=== PATIENT | male | born 1980 | race Caucasian/White ===

== ENCOUNTER 2017-01-20 20:50 | Emergency (ER) | payer OTHER ==
[2017-01-20 20:55] VITALS: BP 167/104
[2017-01-20] MEDS ORDERED: HYDROcod/ACET 5/325 Prepack 6 PO STA (21:07)
--- NOTE | 2017-01-20 21:10 | ED Physician Documentation ---
PD HPI UPPER EXT INJURY - Stated complaint Stated Complaint: L SHOULDER PAIN - Chief complaint Chief Complaint: Ext Problem - History obtained from History obtained from: Patient - History of Present Illness Type of injury: Other (He has chronic recurrent left shoulder pain from a previous injury, previous x-rays were noncontributory. He says to some extent it hurts every day but every few months he gets a bad flare and gets pain across the top of the shoulder and difficulty with abduction.) Review of Systems Constitutional: denies: Fever, Chills Throat: denies: Dental pain / toothache, Sore throat Cardiac: denies: Chest pain / pressure, Palpitations PD PAST MEDICAL HISTORY - Past Medical History Cardiovascular: None Respiratory: None Neuro: None Endocrine/Autoimmune: None GI: None : None HEENT: None Psych: None Musculoskeletal: None Derm: None - Past Surgical History Past Surgical History: No - Present Medications Home Medications: Ambulatory Orders Medication Instructions Recorded Confirmed No Known Home Medications [No 01/20/17 01/20/17 Known Home Medications] - Allergies Allergies/Adverse Reactions: Allergies Allergy/AdvReac Type Severity Reaction Status Date / Time No Known Drug Allergies Allergy Verified 01/20/17 20:52 - Social History Does the pt smoke?: No Smoking Status: Never smoker Does the pt drink ETOH?: Yes Does the pt have substance abuse?: No - Immunizations Immunizations are current?: Yes - POLST Patient has POLST: No PD ED PE NORMAL - Vitals Vital signs reviewed: Yes - General General: Alert and oriented X 3, No acute distress - Extremities Extremities: Other (Left shoulder is nontender, he is able to abduct to about 90 but not greater, he does have positive supraspinatus testing.) - Neuro Neuro: Alert and oriented X 3, Normal speech Results - Vitals Vitals: Vital Signs - 24 hr 01/20/17 20:53 Temperature 36.5 C Heart Rate 106 H Respiratory 16 Rate Blood Pressure 167/104 H O2 Saturation 96 Oxygen O2 Source Room air Departure - Departure Disposition: 01 Home, Self Care Clinical Impression: Rotator cuff injury Qualifiers: Encounter type: initial encounter Laterality: left Qualified Code(s): S46.002A - Unspecified injury of muscle(s) and tendon(s) of the rotator cuff of left shoulder, initial encounter Condition: Good Record reviewed to determine appropriate education?: Yes Instructions: ED Tendinitis Rotator Cuff Comments: Given that this is now chronic issue, talk with your doctor about potentially an MRI to see if surgery would be a viable option for you. Your blood pressure was elevated today on check into the emergency department. This does not mean that you have hypertension, it is a common phenomenon to come to the emergency department and have elevated blood pressure. I recommend that she see her primary care physician within the week to have it rechecked when you are feeling better.
[2017-01-20] MEDS ORDERED: HYDROcod/ACET 5/325 Prepack 6 PO ONE (21:15)
== END 2017-01-20 21:25 | disposition home or self-care (01) ==
LOC: ED 20:50
DX: M25.512 Pain in left shoulder (principal); X58.XXXA Exposure to other specified factors, initial encounter; R03.0 Elevated blood-pressure reading, without diagnosis of hypertension; G89.29 Other chronic pain; Z87.828 Personal history of other (healed) physical injury and trauma
CPT/HCPCS: 99283

== ENCOUNTER 2018-11-16 15:12 | Outpatient (CLI) | payer OTHER ==
--- NOTE | 2018-11-16 17:49 | CARDIAC PROCEDURE NOTE ---
DATE OF SERVICE: 11/16/2018 Physician: Michelle Bourgeois MD, [facility] INDICATION: Chest pain. CARDIAC RISK FACTORS: Tobacco use, mild hypertension, father with a stroke. PROCEDURE: After signing informed consent, the patient underwent a Lester- protocol treadmill stress test. No imaging was ordered with the study. RESTING HEART RATE: 87. PEAK HEART RATE: 179 (96% PMHR). RESTING BLOOD PRESSURE: 133/82. PEAK BLOOD PRESSURE: 180/70. The patient exercised for 9 minutes and 28 seconds on a Lester-protocol treadmill stress test. He achieved a peak heart rate of 179 (96% PMHR) and 10.9 METS. The patient described 1 episode of brief chest pain, somewhat pleuritic, that lasted for a few seconds, and he developed mild shortness of breath at peak. He described his perceived exertion at 16/20 on a Matty scale. RESTING EKG: Normal sinus rhythm, poor R-wave progression. EKG AT PEAK: New vertical QRS axis, otherwise unchanged. No ST or T-wave changes suggestive of ischemia. IMPRESSION: 1. Abnormal resting EKG. 2. Good exercise tolerance. 3. Non-anginal pain occurred briefly. 4. EKG changes that were seen with exercise are consistent with pulmonary disease. 5. No imaging was ordered with this test. 6. Cardiac risk status is low, with the above test results. cc: Mj Sin MD TD: 11/16/2018 17:14 MTDD
== END 2018-11-16 15:13 | disposition home or self-care (01) ==
LOC: DI 15:12
PROVIDERS: ATTEND General Practice
DX: R07.9 Chest pain, unspecified (principal); R94.31 Abnormal electrocardiogram [ECG] [EKG]; I10 Essential (primary) hypertension; Z72.0 Tobacco use; Z82.3 Family history of stroke
CPT/HCPCS: 93017

== ENCOUNTER 2019-01-09 14:44 | Emergency (ER) | payer OTHER ==
--- NOTE | 2019-01-09 15:21 | XRAY Report ---
Reason: injury Procedure Date: 01/09/2019 Accession Number: [id number] / [id number] Procedure: XR - Toe(s) RT CPT Code: FULL RESULT: EXAM: RIGHT SECOND TOE RADIOGRAPHY EXAM DATE: 01/09/2019 03:05 PM. CLINICAL HISTORY: Injury right second toe trying to move a tire. Pain and bruising. COMPARISON: None. TECHNIQUE: 3 views. FINDINGS: Bones: Acute 4 x 2 mm avulsion fracture from the volar base of the middle phalanx of the right second toe with 1 mm displacement. No other fracture or focal bone lesion. Joints: Normal. No subluxations. Soft Tissues: Mild soft tissue swelling at the second proximal phalanx. IMPRESSION: Acute 4 x 2 mm avulsion fracture from the volar base of the middle phalanx of the right second toe with 1 mm displacement. RADIA
[2019-01-09] MEDS ORDERED: IBUPROFEN 800 MG TABLET PO STA (15:47)
--- NOTE | 2019-01-09 15:56 | ED Physician Documentation ---
History of Present Illness - Stated complaint Stated Complaint: R MIDDLE TOE INJ - Chief complaint Chief Complaint: Ext Problem - History obtained from History obtained from: Patient - History of Present Illness Timing: Last night Pain level max: 7 Pain level now: 7 - Additonal information Additional information: 38-year-old male presents to the emergency department with a right second toe injury last night at work. He works at the [employer]. Noted bruising and swelling this morning. Worse with movement, better with rest. States that hit it on a tire. Review of Systems Neurologic: denies: Focal weakness, Numbness PD PAST MEDICAL HISTORY - Past Medical History Cardiovascular: None Respiratory: None Endocrine/Autoimmune: None GI: None : None HEENT: None Psych: None Musculoskeletal: None Derm: None - Past Surgical History Past Surgical History: No - Present Medications Home Medications: Ambulatory Orders Medication Instructions Recorded Confirmed Hydrocodone/Acetaminophen 1 - 2 each PO Q6H PRN #10 tablet 01/09/19 [Hydrocodon-Acetaminophen 5-325] Ibuprofen [Motrin] 800 mg PO Q8H PRN #30 tablet 01/09/19 - Allergies Allergies/Adverse Reactions: Allergies Allergy/AdvReac Type Severity Reaction Status Date / Time No Known Drug Allergies Allergy Verified 01/09/19 14:51 - Social History Does the pt smoke?: No Smoking Status: Never smoker Does the pt drink ETOH?: Yes Does the pt have substance abuse?: No - Immunizations Immunizations are current?: Yes - POLST Patient has POLST: No PD ED PE NORMAL - Vitals Vital signs reviewed: Yes - General General: Alert and oriented X 3, No acute distress - Derm Derm: Warm and dry - Extremities Extremities: Other (Swelling and bruising to the right second toe. Neurovascularly intact.) - Neuro Neuro: Alert and oriented X 3 - Psych Psych: Normal mood, Normal affect Results - Vitals Vitals: Vital Signs - 24 hr 01/09/19 01/09/19 14:50 15:58 Temperature 37.1 C 36.7 C Heart Rate 86 79 Respiratory 16 18 Rate Blood Pressure 145/110 H 120/82 H O2 Saturation 97 96 Oxygen O2 Source Room air - Rads (name of study) Toe x-ray Radiology: Prelim report reviewed, EMP read contemporaneously, See rad report (Acute 4 x 2 mm avulsion fracture from the volar base of the middle phalanx of the right second toe with 1 mm displacement. ) PD MEDICAL DECISION MAKING - ED course Complexity details: reviewed results, re-evaluated patient, considered differential, d/w patient ED course: 38-year-old male with a 4 x 2 mm avulsion fracture from the volar base of the middle phalanx of the right second toe. Placed in a postoperative shoe for comfort and darren tape the toe. We will follow-up with his doctor for further care. Neurovascular intact. Patient counseled regarding signs and symptoms for which I believe and urgent re-evaluation would be necessary. Patient with good understanding of and agreement to plan and is comfortable going home at this time This document was made in part using voice recognition software. While efforts are made to proofread this document, sound alike and grammatical errors may oc cur. Departure - Departure Disposition: 01 Home, Self Care Clinical Impression: Toe fracture, right Qualifiers: Encounter type: initial encounter Toe: lesser toe Fracture type: closed Phalanx: middle Fracture alignment: nondisplaced Qualified Code(s): S92.524A - Nondisplaced fracture of middle phalanx of right lesser toe(s), initial encounter for closed fracture Condition: Good Instructions: ED Fx Toe Closed Follow-Up: Mj Sin MD [Primary Care Provider] - Within 1 week Prescriptions: Hydrocodone/Acetaminophen [Hydrocodon-Acetaminophen 5-325] 1 - 2 each PO Q6H PRN #10 tablet PRN Reason: pain Ibuprofen [Motrin] 800 mg PO Q8H PRN #30 tablet PRN Reason: PAIN &/OR FEVER Comments: Return if you worsen. Follow-up with your doctor for further care. You do have a small avulsion fracture of the right second toe. Do not drink alcohol or drive while on narcotic pain medicine. Note that many narcotic pain relievers also contain tylenol/acetaminophen. Please ensure that your total dose of acetaminophen from all sources does not exceed 3 grams (3000mg) per day. You may constipated on this medication, take a stool softener such as "Colace" twice a day while you are on it. Also recommend a [id number] laxative such as senna or MiraLAX any day that you do not have a bowel movement. If you received narcotic pain medication in the emergency department, do not drive or operate machinery for the next 24 hours. Discharge Date/Time: 01/09/19 16:03
[2019-01-09 15:59] VITALS: BP 120/82
== END 2019-01-09 16:03 | disposition home or self-care (01) ==
LOC: ED 14:44
DX: S92.521A Displaced fracture of middle phalanx of right lesser toe(s), initial encounter for closed fracture (principal); W22.09XA Striking against other stationary object, initial encounter; Y93.89 Activity, other specified; Y92.139 Unspecified place military base as the place of occurrence of the external cause; Y99.0 Civilian activity done for income or pay
CPT/HCPCS: 73660; 99283; A9270

== ENCOUNTER 2019-01-10 21:38 | Emergency (ER) | payer OTHER ==
[2019-01-10 21:46] VITALS: BP 150/94
--- NOTE | 2019-01-10 22:02 | ED Physician Documentation ---
History of Present Illness - Stated complaint Stated Complaint: R TOE INJ - Chief complaint Chief Complaint: Ext Problem - History obtained from History obtained from: Patient - History of Present Illness Timing: Yesterday Pain level max: 6 Pain level now: 6 - Additonal information Additional information: Patient with a known right toe fracture. Increasing pain today. Also needs a note for work. Better with rest and elevation. Worse with walking. Review of Systems Constitutional: denies: Fever Neurologic: denies: Numbness PD PAST MEDICAL HISTORY - Past Medical History Cardiovascular: None Respiratory: None Endocrine/Autoimmune: None GI: None : None HEENT: None Psych: None Musculoskeletal: None Derm: None - Past Surgical History Past Surgical History: No - Present Medications Home Medications: Ambulatory Orders Medication Instructions Recorded Confirmed Hydrocodone/Acetaminophen 1 - 2 each PO Q6H PRN #10 tablet 01/09/19 01/10/19 [Hydrocodon-Acetaminophen 5-325] Ibuprofen [Motrin] 800 mg PO Q8H PRN #30 tablet 01/09/19 01/10/19 - Allergies Allergies/Adverse Reactions: Allergies Allergy/AdvReac Type Severity Reaction Status Date / Time No Known Drug Allergies Allergy Verified 01/10/19 21:45 - Social History Does the pt smoke?: No Smoking Status: Never smoker Does the pt drink ETOH?: Yes Does the pt have substance abuse?: No - Immunizations Immunizations are current?: Yes - POLST Patient has POLST: No PD ED PE NORMAL - Vitals Vital signs reviewed: Yes - General General: Alert and oriented X 3, No acute distress - Derm Derm: Warm and dry - Extremities Extremities: Other (Ecchymosis and swelling to the right second toe. Neurovascu larly intact.) - Neuro Neuro: Alert and oriented X 3 Results - Vitals Vitals: Oxygen O2 Source Room air PD MEDICAL DECISION MAKING - ED course Complexity details: considered differential, d/w patient ED course: As the patient is not tolerating weightbearing as tolerated, will place on crutches. Recommend he elevate his leg. Patient counseled regarding signs and symptoms for which I believe and urgent re-evaluation would be necessary. Patient with good understanding of and agreement to plan and is comfortable going home at this time This document was made in part using voice recognition software. While efforts are made to proofread this document, sound alike and grammatical errors may occur. Departure - Departure Disposition: , Self Care Clinical Impression: Toe fracture, right Qualifiers: Encounter type: initial encounter Toe: unspecified toe Fracture type: closed Physeal involvement: unspecified Qualified Code(s): S92.911A - Unspecified fracture of right toe(s), initial encounter for closed fracture Condition: Good Instructions: ED Fx Toe Closed Follow-Up: Mj Sin MD [Primary Care Provider] - Within 1 week Comments: Continue your current medications at home. Return if you worsen. Follow-up with your doctor for further care. Forms: Activity restrictions Discharge Date/Time: 01/10/19 22:15
== END 2019-01-10 22:15 | disposition home or self-care (01) ==
LOC: ED 21:38
DX: S92.504A Nondisplaced unspecified fracture of right lesser toe(s), initial encounter for closed fracture (principal); X58.XXXA Exposure to other specified factors, initial encounter
CPT/HCPCS: 99282

== ENCOUNTER 2019-12-30 21:56 | Emergency (ER) | payer OTHER ==
--- NOTE | 2019-12-30 22:17 | ED Physician Documentation ---
History of Present Illness - Stated complaint Stated Complaint: R FOOT INJURY - Chief complaint Chief Complaint: Ext Problem - History obtained from History obtained from: Patient (39-year-old male with right foot pain. Denies any other complaints denies fevers. Reports that he dropped a weight on his foot. Reports he is able to ambulate) Review of Systems Constitutional: reports: Reviewed and negative Eyes: reports: Reviewed and negative Ears: reports: Reviewed and negative Nose: reports: Reviewed and negative Throat: reports: Reviewed and negative Cardiac: reports: Reviewed and negative Respiratory: reports: Reviewed and negative GI: reports: Reviewed and negative : reports: Reviewed and negative Skin: reports: Reviewed and negative Musculoskeletal: reports: Extremity pain Neurologic: reports: Reviewed and negative Psychiatric: reports: Reviewed and negative Endocrine: reports: Reviewed and negative Immunocompromised: reports: Reviewed and negative PD PAST MEDICAL HISTORY - Past Medical History Cardiovascular: None Respiratory: None Endocrine/Autoimmune: None GI: None : None HEENT: None Psych: None Musculoskeletal: None Derm: None - Past Surgical History Past Surgical History: No - Present Medications Home Medications: Ambulatory Orders Medication Instructions Recorded Confirmed Hydrocodone/Acetaminophen 1 - 2 each PO Q6H PRN #10 tablet 01/09/19 01/10/19 [Hydrocodon-Acetaminophen 5-325] Ibuprofen [Motrin] 800 mg PO Q8H PRN #30 tablet 01/09/19 01/10/19 - Allergies Allergies/Adverse Reactions: Allergies Allergy/AdvReac Type Severity Reaction Status Date / Time No Known Drug Allergies Allergy Verified 12/30/19 22:11 - Social History Does the pt smoke?: No Smoking Status: Never smoker Does the pt drink ETOH?: Yes Does the pt have substance abuse?: No - Immunizations Immunizations are current?: Yes - POLST Patient has POLST: No PD ED PE NORMAL - Vitals Vital signs reviewed: Yes - General General: Alert and oriented X 3, No acute distress, Well developed/nourished - HEENT HEENT: PERRL - Neck Neck: Supple, no meningeal sign - Cardiac Cardiac: RRR, No murmur - Respiratory Respiratory: Clear bilaterally - Abdomen Abdomen: Normal bowel sounds, Soft, Non tender, Non distended - Derm Derm: Warm and dry - Extremities Extremities: No deformity, Other (Right foot with no gross deformity able to ambulate. 2+ and palpable DP and PT pulses, compartments soft, neurovascular intact, sensations intact light touch.) - Neuro Neuro: Alert and oriented X 3 - Psych Psych: Normal mood, Normal affect Results - Vitals Vitals: Vital Signs - 24 hr 12/30/19 12/30/19 12/30/19 22:09 23:25 23:50 Temperature 36.7 C Heart Rate 116 H Respiratory 16 16 16 Rate Blood Pressure 137/100 H O2 Saturation 99 12/30/19 23:51 Temperature Heart Rate 90 Respiratory 16 Rate Blood Pressure 119/83 H O2 Saturation 95 Oxygen O2 Source Room air PD MEDICAL DECISION MAKING - ED course Complexity details: considered differential (Foot injury. X-rays are negative.), d/w patient, other (Patient should follow-up at [facility] would be [place] today with medical for reexamination.) Departure - Departure Disposition: 01 Home, Self Care Clinical Impression: Contusion of right foot Qualifiers: Encounter type: initial encounter Qualified Code(s): S90.31XA - Contusion of right foot, initial encounter Condition: Stable Instructions: Metatarsalgia Tx Follow-Up: your, doctor [Other] Comments: follow up with medical at [facility] tomorrow at 7 am. ice several times daily. Discharge Date/Time: 12/30/19 23:50
[2019-12-30 23:51] VITALS: BP 119/83
--- NOTE | 2019-12-31 09:05 | XRAY Report ---
PROCEDURE: Foot 3 View RT INDICATIONS: right foot pain TECHNIQUE: 3 views of the foot were acquired. COMPARISON: None FINDINGS: Bones: No fractures or dislocations. No suspicious bony lesions. Soft tissues: No tibiotalar joint effusion. Achilles tendon appears normal. IMPRESSION: No fracture. No osseous lesion. If there is continued clinical concern for pathology, then repeat ricky in film radiographs (7-10 days) or advanced imaging (CT, MR, bone scan) should be considered for furt her evaluation. Reviewed by: Trina Zaragoza MD, PhD on 12/31/2019 9:04 AM PDT Approved by: Trina Zaragoza MD, PhD on 12/31/2019 9:04 AM PDT Station ID: [id number]
== END 2019-12-30 23:50 | disposition home or self-care (01) ==
LOC: ED 21:56
DX: S90.31XA Contusion of right foot, initial encounter (principal); W22.8XXA Striking against or struck by other objects, initial encounter
CPT/HCPCS: 99282; 99283